=== PATIENT | female | born 1940 | race Caucasian/White ===

== ENCOUNTER 2017-01-16 13:08 | Observation (INO) | payer MEDICARE, OTHER ==
[2017-01-16 13:09] VITALS: BMI 33.2
[2017-01-16 15:05] LABS: VENOUS BLOOD GAS BASE EXCESS 3.4 mmol/L (0.0-2.0); VENOUS BLOOD GAS PCO2 44 mmHg (40-60); VENOUS BLOOD PH 7.42 (7.32-7.43)
[2017-01-16 15:05] LABS: BASO % 0.4 % (0.0-2.0); EOS # 0.1 K/uL (0.0-0.7); EOS % 1.9 % (0.0-4.0); HEMATOCRIT 31.2 % (34.0-47.0); LYMPH # 1.9 K/uL (1.0-4.3); LYMPH % 27.7 % (20.0-40.0); MEAN CELL VOLUME 91.7 fL (81.0-99.0); MEAN CORPUSCULAR HEMOGLOBIN 30.4 pg (27.0-31.0); MEAN CORPUSCULAR HGB CONC 33.2 g/dL (33.0-37.0); MEAN PLATELET VOLUME 8.2 fL (7.2-11.7); MONO # 0.4 K/uL (0.0-0.8); MONO % 5.3 % (0.0-10.0); RED CELL DISTRIBUTION WIDTH 16.9 % (11.5-14.5)
[2017-01-16 15:15] LABS: INR 1.1; PARTIAL THROMBOPLASTIN TIME 28 SECONDS (21-34)
[2017-01-16 15:25] LABS: RBC URINE 2 /hpf (0-3); URINE BACTERIA RARE (<OCC); URINE BILIRUBIN NEGATIVE (NEGATIVE); URINE BLOOD NEGATIVE (NEGATIVE); URINE COLOR Yellow (YELLOW); URINE GLUCOSE (UA) 3+ mg/dL (Normal); URINE KETONE NEGATIVE (NEGATIVE); URINE LEUKOCYTE ESTERASE 2+ Leu/uL (Negative); URINE PROTEIN 2+ mg/dL (NEGATIVE); URINE UROBILINOGEN NORMAL mg/dL (0.2-1.0); WBC URINE 4 /hpf (0-5)
[2017-01-16 15:33] LABS: POTASSIUM 4.3 mmol/L (3.6-5.2)
[2017-01-16 15:35] LABS: ALB/GLOB RATIO 1.4 (1.0-2.1); BILIRUBIN,TOTAL 0.8 mg/dL (0.2-1.3); TOTAL PROTEIN 7.2 g/dL (6.3-8.3)
[2017-01-16 15:36] LABS: CALCIUM 9.5 mg/dl (8.6-10.4)
--- NOTE | 2017-01-16 15:37 | RAD ---
PROCEDURE: CHEST RADIOGRAPH, 1 VIEW HISTORY: weakness COMPARISON: 12/07/2015 FINDINGS: LUNGS: Clear. PLEURA: No pneumothorax or pleural fluid seen. CARDIOVASCULAR: Normal. OSSEOUS STRUCTURES: No significant abnormalities. VISUALIZED UPPER ABDOMEN: Normal. OTHER FINDINGS: None. IMPRESSION: No active disease.
[2017-01-16 15:55] LABS: TROPONIN I 0.018 ng/mL (0.00-0.120)
[2017-01-16] MEDS ORDERED: cefTRIAXone IV 1 gm in Dextros 50 ML IVPB STA (16:10)
[2017-01-16] MEDS ORDERED: Azithromycin 500 MG in Sodium Chloride 0.9% 250 ML IVPB STA (16:10)
--- NOTE | 2017-01-16 16:46 | C.PDOC ---
History Of Present Illness Patient is a 76 y/o female, with PMHx of chronic kidney disease on hemodialysis , that presents to the ED for evaluation of not feeling well for the last 6 days. Pt was seen at [facility] after her dialysis on 01/13 with similar complaints, and had negative work up, and was discharged home. Pt states that she skipped her dialysis yesterday because she was not feeling good. Pt notes nausea, and lightheadedness. Otherwise, denies any chest pain, shortness of breath, vomiting, diarrhea, abdominal pain, fever, chills, or any other associated symptoms at this time. Time Seen by Provider: 01/16/17 14:28 Chief Complaint (Nursing): Weakness/Neurological Deficit History Per: Patient History/Exam Limitations: no limitations Onset/Duration Of Symptoms: Days (6) Current Symptoms Are (Timing): Still Present Severity: None Pain Scale Rating Of: 0 Recent travel outside of the [place]: No Additional History Per: Patient Past Medical History Reviewed: Historical Data, Nursing Documentation, Vital Signs Vital Signs: Last Vital Signs Temp 100 F H 01/16/17 15:13 Pulse 62 01/16/17 18:41 Resp 20 01/16/17 18:41 BP 147/61 01/16/17 18:41 Pulse Ox 97 01/16/17 19:01 - Medical History PMH: Anemia, Anxiety, Arthritis, Asthma, Back Problems, Bronchitis, CHF, COPD, Dementia, Depression, Diabetes, HTN, Hypercholesterolemia, Peripheral Edema, Pneumonia, Chronic Kidney Disease - [facility] Procedures APPLICATION OF SPLINT (02/11/14) ENDOSC POLYPECTOMY OF LG INTEST (02/27/13) ESOPHAGOGASTRODUODENOSCOPY [EGD] W/CLOSED BIOPSY (02/27/13) INSERTION OF INFUSION DEV INTO INF VENA CAVA, PERC APPROACH (12/04/15) PACKED CELL TRANSFUSION (02/27/13) PERFORMANCE OF URINARY FILTRATION, MULTIPLE (12/04/15) TRANSFUSE NONAUT RED BLOOD CELLS IN PERIPH VEIN, PERC (12/04/15) Family History: States: Unknown Family Hx - Social History Hx Tobacco Use: No Hx Alcohol Use: No Hx Substance Use: No - Immunization History Hx Tetanus Toxoid Vaccination: No Hx Influenza Vaccination: Yes Hx Pneumococcal Vaccination: No Review Of Systems Except As Marked, All Systems Reviewed And Found Negative. Constitutional: Negative for: Fever, Chills Cardiovascular: Positive for: Light Headedness. Negative for: Chest Pain, Palpitations Respiratory: Negative for: Cough, Shortness of Breath Gastrointestinal: Positive for: Nausea. Negative for: Vomiting, Abdominal Pain , Diarrhea Musculoskeletal: Negative for: Back Pain Neurological: Negative for: Headache, Dizziness Physical Exam - Physical Exam Appears: No Acute Distress Skin: Normal Color, Warm, Dry Head: Atraumatic, Normacephalic Eye(s): bilateral: Normal Inspection Neck: Normal ROM, Supple Chest: Symmetrical Cardiovascular: Rhythm Regular, No Murmur Respiratory: Normal Breath Sounds, No Rales, No Rhonchi, No Wheezing Gastrointestinal/Abdominal: Soft, No Tenderness Back: Normal Inspection Neurological/Psych: Oriented x3, Normal Speech, Normal Cognition ED Course And Treatment - Laboratory Results Result Diagrams: 01/16/17 15:01 01/16/17 15:01 ECG: Interpreted By Me, Viewed By Me ECG Rhythm: Sinus Rhythm ECG Interpretation: No Acute Changes Interpretation Of ECG: Non-specific ST wave changes. Rate From EC (bpm) O2 Sat by Pulse Oximetry: 97 (on RA) Progress Note: Labs,EKG, CXR ordered and reviewed. Rectal temp was found to be 100. Normal Lactate levels. Pt was given Zithromax, Zofran, and Rocephin. Spoke with Dr. Lai who accepts pt under his service for observation. Disposition - Disposition Disposition: HOSPITALIZED Disposition Time: 16:46 Condition: FAIR - Clinical Impression Clinical Impression: Weakness, Nausea and vomiting, ESRD (end stage renal disease) on dialysis - PA / SHIP BOSS / Resident Statement MD/DO has reviewed & agrees with the documentation as recorded. - Scribe Statement The provider has reviewed the documentation as recorded by the Scribe Mathieu Calderon All medical record entries made by the Keronibluis were at my direction and personally dictated by me. I have reviewed the chart and agree that the record accurately reflects my personal performance of the history, physical exam, medical decision making, and the department course for this patient. I have also personally directed, reviewed, and agree with the discharge instructions and disposition. Decision To Admit - Pt Status Changed To: Hospital Disposition Of: Observation - . Bed Request Type: Regular Admitting Physician: Festus Lai Patient Diagnosis: Weakness, Nausea and vomiting, ESRD (end stage renal disease) on dialysis
[2017-01-16 18:42] VITALS: RESP 20
[2017-01-16] MEDS: (Novolog) Insulin Aspart, Recombinant 100 u/ml 10 ml vial SC SCH (22:00)
[2017-01-16] MEDS: (Lantus) Insulin Glargine, Recombinant SC SCH (22:17)
[2017-01-17] MEDS: (Novolog) Insulin Aspart, Recombinant 100 u/ml 10 ml vial SC SCH ×4 (07:31→21:23)
[2017-01-17] MEDS: Brimonidine 0.2% Opth Sol (5ml) OU SCH ×2 (09:00→21:19)
[2017-01-17] MEDS ORDERED: Pantoprazole 40 mg EC Tab PO SCH ×2 (10:00)
--- NOTE | 2017-01-17 11:21 | CP.PCM.CON ---
History of Present Illness - History of Present Illness History of Present Illness: Patient is a 76 y/o female, with PMHx of chronic kidney disease on hemodialysis , that presents to the ED for evaluation of not feeling well for the last 6 days. Pt was seen at [facility] after her dialysis on 01/13 with similar complaints, and had negative work up, and was discharged home. Pt states that she skipped her dialysis yesterday because she was not feeling good. Pt notes nausea, and lightheadedness. Otherwise, denies any chest pain, shortness of breath, vomiting, diarrhea, abdominal pain, fever, chills, or any other associated symptoms at this time. Since admission, patient feels much better. No further abdominal pain. no further nausea and in fact wants to eat Review of Systems - Constitutional Constitutional: absent: Anorexia, Chills, Fever - EENT Eyes: absent: Change in Vision, Dry Eye, Loss of Peripheral Vision Nose/Mouth/Throat: absent: Nasal Congestion, Bleeding Gums, Dry Mouth, Mouth Lesions - Cardiovascular Cardiovascular: absent: Dyspnea on Exertion, Lightheadedness, Paroxysmal Nocturnal Dyspnea - Respiratory Respiratory: absent: Cough, Dyspnea, Wheezing - Gastrointestinal Gastrointestinal: Abdominal Pain, Nausea. absent: Diarrhea - Musculoskeletal Musculoskeletal: Limited Range of Motion. absent: Arthralgias, Joint Swelling, Muscle Cramps - Integumentary Integumentary: absent: Rash, Skin Ulcer, Sores, Jaundice - Neurological Neurological: Dizziness. absent: Abnormal Hearing, Numbness, Syncope - Psychiatric Psychiatric: Memory Loss. absent: Confusion Past Patient History - Infectious Disease Hx of Infectious Diseases: None - Past Medical History & Family History Past Medical History?: Yes - Past Social History Smoking Status: Never Smoked - CARDIAC Hx Congestive Heart Failure: Yes Hx Hypercholesterolemia: Yes Hx Hypertension: Yes Hx Peripheral Edema: Yes - PULMONARY Hx Asthma: Yes Hx Bronchitis: Yes Hx Chronic Obstructive Pulmonary Disease (COPD): Yes Hx Pneumonia: Yes - NEUROLOGICAL Hx Dementia: Yes - HEENT Hx HEENT Problems: Yes Hx Glaucoma: Yes - RENAL Date of Last Dialysis Treatment: 01/13/17 - ENDOCRINE/METABOLIC Hx Endocrine Disorders: Yes Hx Diabetes Mellitus Type 2: Yes - HEMATOLOGICAL/ONCOLOGICAL Hx Blood Disorders: Yes Hx Anemia: Yes - INTEGUMENTARY Hx Dermatological Problems: Yes (h/o RIGHT foot lesion resection) - MUSCULOSKELETAL/RHEUMATOLOGICAL Hx Musculoskeletal Disorders: Yes Hx Falls: Yes Hx Unsteady Gait: Yes - GASTROINTESTINAL Hx Gastrointestinal Disorders: Yes Hx Gastroesophageal Reflux: Yes Hx Nausea: Yes Hx Ulcer: Yes - GENITOURINARY/GYNECOLOGICAL Hx Genitourinary Disorders: Yes Hx Incontinence: Yes - PSYCHIATRIC Hx Psychophysiologic Disorder: No Hx Substance Use: No - SURGICAL HISTORY Hx Surgeries: Yes Hx Hysterectomy: Yes Other/Comment: BLADDER SX, RIGHT FOOT SURGERY-RESECTION DUE TO CANCER. - ANESTHESIA Hx Anesthesia: Yes Hx Anesthesia Reactions: No Hx Malignant Hyperthermia: No Has any member of the family had a problem w/ anesthesia?: No Meds Allergies/Adverse Reactions: Allergies Allergy/AdvReac Type Severity Reaction Status Date / Time No Known Allergies Allergy Verified 01/16/17 13:23 - Medications Medications: Current Medications Amlodipine Besylate (Norvasc) 5 mg PO DAILY [facility] Last Admin: 01/17/17 09:01 Dose: Not Given Brimonidine Tartrate (Alphagan 0.2% Opht) 0 ml OU BID [facility] Last Admin: 01/17/17 09:00 Dose: Not Given Calcitriol (Rocaltrol) 0.25 mcg PO DAILY [facility] Last Admin: 01/17/17 09:02 Dose: Not Given Donepezil HCl (Aricept) 10 mg PO HS [facility] Last Admin: 01/16/17 21:33 Dose: 10 mg Escitalopram Oxalate (Lexapro) 20 mg PO DAILY [facility] Last Admin: 01/17/17 09:01 Dose: Not Given Ferrous Sulfate (Feosol) 325 mg PO DAILY [facility] Last Admin: 01/17/17 09:01 Dose: Not Given Gabapentin (Neurontin) 300 mg PO HS [facility] Last Admin: 01/16/17 21:33 Dose: 300 mg Heparin Sodium (Porcine) (Heparin) 5,000 units SC Q8 [facility] Last Admin: 01/17/17 05:55 Dose: 5,000 units Hydralazine HCl (Apresoline) 50 mg PO TID [facility] Last Admin: 01/17/17 09:01 Dose: Not Given Ceftriaxone Sodium 1 gm/ (Sodium Chloride) 100 mls @ 100 mls/hr IVPB DAILY [facility] Last Admin: 01/17/17 10:00 Dose: 100 mls/hr Insulin Aspart (Novolog) 0 unit SC ACHS [facility] PRN Reason: Protocol Last Admin: 01/17/17 07:31 Dose: Not Given Insulin Glargine (Lantus) 30 unit SC [facility] Last Admin: 01/16/17 22:17 Dose: 30 units Ondansetron HCl (Zofran Inj) 4 mg IVP Q4 PRN PRN Reason: Nausea/Vomiting Pantoprazole Sodium (Protonix Inj) 40 mg IVP DAILY [facility] Last Admin: 01/17/17 09:02 Dose: Not Given Pantoprazole Sodium (Protonix Ec Tab) 40 mg PO DAILY [facility] Rosuvastatin Calcium (Crestor) 5 mg PO HS [facility] Last Admin: 01/16/17 21:33 Dose: 5 mg Trazodone HCl (Desyrel) 50 mg PO HS PRN PRN Reason: Sleep Physical Exam - Constitutional Appears: Non-toxic, Chronically Ill - Head Exam Head Exam: ATRAUMATIC, NORMAL INSPECTION - Eye Exam Eye Exam: EOMI, Normal appearance - ENT Exam ENT Exam: Mucous Membranes Moist, Normal Oropharynx - Neck Exam Neck exam: Negative for: Lymphadenopathy, Thyromegaly - Respiratory Exam Respiratory Exam: Clear to Auscultation Bilateral. absent: Rhonchi, Wheezes - Cardiovascular Exam Cardiovascular Exam: REGULAR RHYTHM, +S1, +S2. absent: JVD - GI/Abdominal Exam GI & Abdominal Exam: Normal Bowel Sounds, Soft - Extremities Exam Extremities exam: Positive for: pedal edema. Negative for: joint swelling - Neurological Exam Neurological exam: Alert, Oriented x3 - Psychiatric Exam Psychiatric exam: Normal Affect, Normal Mood - Skin Skin Exam: Dry, Intact Results - Vital Signs Recent Vital Signs: Last Vital Signs Temp 99.2 F 01/17/17 08:00 Pulse 59 L 01/17/17 08:00 Resp 20 01/17/17 08:00 BP 148/64 01/17/17 08:00 Pulse Ox 95 01/17/17 08:00 - Labs Result Diagrams: 01/16/17 15:01 01/16/17 15:01 Labs: Laboratory Results - last 24 hr 01/16/17 01/16/17 01/17/17 18:49 21:24 07:10 POC Glucose (mg/dL) 136 H 124 H 97 Assessment & Plan (1) ESRD (end stage renal disease) on dialysis Status: Acute (2) Nausea and vomiting Status: Acute (3) Controlled diabetes mellitus with diabetic nephropathy Status: Acute (4) ESRD (end stage renal disease) Status: Chronic (5) Hypertension Status: Chronic (6) Anemia Status: Acute - Assessment and Plan (Free Text) Assessment: Abdominal discomfort of uncertain etiology - resolving ? viral gastroenteritis Schedule dialysis today for azotemia and electrolyte abnormalities Continue home bp meds Check phos Monitor hgb ?GI eval
--- NOTE | 2017-01-17 18:21 | CP.PCM.PN ---
Subjective - Date & Time of Evaluation Date of Evaluation: 01/17/17 Time of Evaluation: 20:00 - Subjective Subjective: pt seen and evaluated, Abdominal discomfort of uncertain etiology - resolving could be viral gastroenteritis, Schedule dialysis today for azotemia and electrolyte abnormalities Continue home bp meds Check phos Monitor hgb pt is for GI eval Objective - Vital Signs/Intake and Output Vital Signs (last 24 hours): Temp Pulse Resp BP Pulse Ox 97.5 F L 60 20 161/87 H 98 01/17/17 16:30 01/17/17 16:58 01/17/17 16:58 01/17/17 16:58 01/17/17 16:30 Intake and Output: 01/17/17 01/17/17 06:59 18:59 Intake Total 500 450 Balance 500 450 - Medications Medications: Current Medications Amlodipine Besylate (Norvasc) 5 mg PO DAILY [facility] Last Admin: 01/17/17 09:01 Dose: Not Given Brimonidine Tartrate (Alphagan 0.2% Opht) 0 ml OU BID [facility] Last Admin: 01/17/17 09:00 Dose: Not Given Calcitriol (Rocaltrol) 0.25 mcg PO DAILY [facility] Last Admin: 01/17/17 09:02 Dose: Not Given Donepezil HCl (Aricept) 10 mg PO HS [facility] Last Admin: 01/16/17 21:33 Dose: 10 mg Escitalopram Oxalate (Lexapro) 20 mg PO DAILY [facility] Last Admin: 01/17/17 09:01 Dose: Not Given Ferrous Sulfate (Feosol) 325 mg PO DAILY [facility] Last Admin: 01/17/17 09:01 Dose: Not Given Gabapentin (Neurontin) 300 mg PO HS [facility] Last Admin: 01/16/17 21:33 Dose: 300 mg Heparin Sodium (Porcine) (Heparin) 5,000 units SC Q8 [facility] Last Admin: 01/17/17 13:21 Dose: Not Given Hydralazine HCl (Apresoline) 50 mg PO TID [facility] Last Admin: 01/17/17 17:50 Dose: 50 mg Ceftriaxone Sodium 1 gm/ (Sodium Chloride) 100 mls @ 100 mls/hr IVPB DAILY [facility] Last Admin: 01/17/17 10:00 Dose: 100 mls/hr Insulin Aspart (Novolog) 0 unit SC ACHS [facility] PRN Reason: Protocol Last Admin: 01/17/17 12:20 Dose: Not Given Insulin Glargine (Lantus) 30 unit SC HS [facility] Last Admin: 01/16/17 22:17 Dose: 30 units Ondansetron HCl (Zofran Inj) 4 mg IVP Q4 PRN PRN Reason: Nausea/Vomiting Pantoprazole Sodium (Protonix Inj) 40 mg IVP DAILY [facility] Last Admin: 01/17/17 09:02 Dose: Not Given Rosuvastatin Calcium (Crestor) 5 mg PO HS [facility] Last Admin: 01/16/17 21:33 Dose: 5 mg Trazodone HCl (Desyrel) 50 mg PO HS PRN PRN Reason: Sleep - Labs Labs: PT 12.0 SECONDS (9.7-12.2) 01/16/17 15:01 INR 1.1 01/16/17 15:01 APTT 28 SECONDS (21-34) 01/16/17 15:01 - Constitutional Appears: No Acute Distress, Other (looks weak, pale) - Head Exam Head Exam: ATRAUMATIC, NORMAL INSPECTION, NORMOCEPHALIC - Eye Exam Eye Exam: EOMI - ENT Exam ENT Exam: Mucous Membranes Moist, Normal Exam - Respiratory Exam Respiratory Exam: Clear to Ausculation Bilateral, NORMAL BREATHING PATTERN - Cardiovascular Exam Cardiovascular Exam: REGULAR RHYTHM, +S1, +S2 - GI/Abdominal Exam GI & Abdominal Exam: Soft, Normal Bowel Sounds. absent: Tenderness Assessment and Plan (1) Abdominal pain Status: Acute (2) Anemia Status: Acute (3) Controlled diabetes mellitus with diabetic nephropathy Status: Acute (4) ESRD (end stage renal disease) on dialysis Status: Acute (5) Nausea and vomiting Status: Acute (6) Hypertension Status: Chronic
--- NOTE | 2017-01-17 18:21 | CP.PCM.HP ---
History of Present Illness - History of Present Illness History of Present Illness: CC: nausea/Vomitting , fever x 1week HPI: Patient is a 76 y/o elderly female, with PMHx of type 2 DM, depression, chronic kidney disease on hemodialysis, ambulating with walker and cane , dependent on family members for ADL , she went to [facility] in ER first then left there and presents to the ED here for evaluation of not feeling well for the last 6 days. Pt was seen at [facility] after her dialysis on 01/13 with similar complaints, and had negative work up, and was discharged home. Pt states that she skipped her dialysis yesterday because she was not feeling good. Pt notes nausea, and lightheadedness. Otherwise, denies any chest pain, shortness of breath, vomiting, diarrhea, abdominal pain, fever, chills, or any other associated symptoms at this time. Present on Admission - Present on Admission Any Indicators Present on Admission: Yes History of DVT/PE: No History of Uncontrolled Diabetes: Yes Urinary Catheter: No (ESRD) Review of Systems - Review of Systems Systems not reviewed;Unavailable: Acuity of Condition - Constitutional Constitutional: Fatigue, Lethargy, Malaise - EENT Eyes: absent: As Per HPI, Blind Spots, Blurred Vision, Change in Vision, Decreased Night Vision, Diplopia, Discharge, Dry Eye, Exophthalmos, Floaters, Irritation, Itchy Eyes, Loss of Peripheral Vision, Pain, Photophobia, Requires Corrective Lenses, Sees Flashes, Spots in Vision, Tunnel Vision, Other Visual Disturbances, Loss of Vision, Other Ears: absent: As Per HPI, Decreased Hearing, Ear Discharge, Ear Pain, Tinnitus, Abnormal Hearing, Disequilibrium, Dizziness, Other Nose/Mouth/Throat: absent: As Per HPI, Epistaxis, Nasal Congestion, Nasal Discharge, Nasal Obstruction, Nasal Trauma, Nose Pain, Post Nasal Drip, Sinus Pain, Sinus Pressure, Bleeding Gums, Change in Voice, Dental Pain, Dry Mouth, Dysphagia, Halitosis, Hoarsness, Lip Swelling, Mouth Lesions, Mouth Pain, Odynophagia, Sore Throat, Throat Swelling, Tongue Swelling, Facial Pain, Neck Pain, Neck Mass, Other - Cardiovascular Cardiovascular: absent: As Per HPI, Acrocyanosis, Chest Pain, Chest Pain at Rest , Chest Pain with Activity, Claudication, Diaphoresis, Dyspnea, Dyspnea on Exertion, Edema, Irregular Heart Rhythm, Pain Radiating to Arm/Neck/Jaw, Leg Edema, Leg Ulcers, Lightheadedness, Orthopnea, Palpitations, Paroxysmal Nocturnal Dyspnea, Pedal Edema, Radiating Pain, Rapid Heart Rate, Slow Heart Rate, Syncope, Other - Gastrointestinal Gastrointestinal: Abdominal Pain, Diarrhea, Loose Stools, Nausea, Vomiting - Genitourinary Genitourinary: absent: As Per HPI, Change in Urinary Stream, Difficulty Urinating, Dysuria, Flank Pain, Hematuria, Pyuria, Nocturia, Urinary Incontinence, Urinary Frequency, Urinary Hesitance, Urinary Urgency, Voiding Freq/Small Amts, Freq UTI, Hx Renal/Bladder Calculi, Hx /Renal Surgery, Bladder Distension, Other - Neurological Neurological: Dizziness - Psychiatric Psychiatric: absent: As Per HPI, Abnormal Sleep Pattern, Anhedonia, Anxiety, Auditory Hallucinations, Behavioral Changes, Change in Appetite, Change in Libido, Confusion, Depression, Difficulty Concentrating, Hallucinations, Homicidal Ideation, Hopelessness, Irritability, Memory Loss, Mood Swings, Panic Attacks, Paranoia, Suicidal Ideation, Visual Hallucinations, Tactile Hallucinations, Other Past Patient History - Infectious Disease Hx of Infectious Diseases: None - Past Medical History & Family History Past Medical History?: Yes - Past Social History Smoking Status: Never Smoked - CARDIAC Hx Congestive Heart Failure: Yes Hx Hypercholesterolemia: Yes Hx Hypertension: Yes - PULMONARY Hx Chronic Obstructive Pulmonary Disease (COPD): Yes - NEUROLOGICAL Hx Dementia: Yes - HEENT Hx HEENT Problems: Yes Hx Glaucoma: Yes - RENAL Hx Renal Failure: Yes (CKD, ESRD, HD,) - ENDOCRINE/METABOLIC Hx Diabetes Mellitus Type 2: Yes - HEMATOLOGICAL/ONCOLOGICAL Hx Blood Disorders: Yes Hx Anemia: Yes - INTEGUMENTARY Hx Dermatological Problems: Yes (h/o RIGHT foot lesion resection) - MUSCULOSKELETAL/RHEUMATOLOGICAL Hx Musculoskeletal Disorders: Yes Hx Falls: Yes Hx Unsteady Gait: Yes - GASTROINTESTINAL Hx Gastrointestinal Disorders: Yes Hx Gastroesophageal Reflux: Yes Hx Nausea: Yes Hx Ulcer: Yes - GENITOURINARY/GYNECOLOGICAL Hx Genitourinary Disorders: Yes Hx Incontinence: Yes - PSYCHIATRIC Hx Psychophysiologic Disorder: No Hx Substance Use: No - SURGICAL HISTORY Hx Surgeries: Yes Hx Hysterectomy: Yes Other/Comment: BLADDER SX, RIGHT FOOT SURGERY-RESECTION DUE TO CANCER. - ANESTHESIA Hx Anesthesia: Yes Hx Anesthesia Reactions: No Hx Malignant Hyperthermia: No Has any member of the family had a problem w/ anesthesia?: No Meds Allergies/Adverse Reactions: Allergies Allergy/AdvReac Type Severity Reaction Status Date / Time No Known Allergies Allergy Verified 01/16/17 13:23 Physical Exam - Constitutional Appears: No Acute Distress - Head Exam Head Exam: ATRAUMATIC, NORMAL INSPECTION, NORMOCEPHALIC - Eye Exam Eye Exam: EOMI, Normal appearance, PERRL Pupil Exam: NORMAL ACCOMODATION, PERRL - ENT Exam ENT Exam: Mucous Membranes Moist, Normal Exam - Neck Exam Neck exam: Positive for: Normal Inspection - Respiratory Exam Respiratory Exam: Clear to Auscultation Bilateral, NORMAL BREATHING PATTERN - Cardiovascular Exam Cardiovascular Exam: REGULAR RHYTHM, +S1, +S2 - GI/Abdominal Exam GI & Abdominal Exam: Hyperactive Bowel Sounds, Soft - Rectal Exam Rectal Exam: NORMAL INSPECTION Results - Vital Signs Recent Vital Signs: Last Vital Signs Temp 97.5 F L 01/17/17 16:30 Pulse 60 01/17/17 16:58 Resp 20 01/17/17 16:58 BP 161/87 H 01/17/17 16:58 Pulse Ox 98 01/17/17 16:30 - Labs Result Diagrams: 01/16/17 15:01 01/16/17 15:01 Labs: Laboratory Results - last 24 hr 01/16/17 01/16/17 01/17/17 18:49 21:24 07:10 POC Glucose (mg/dL) 136 H 124 H 97 01/17/17 01/17/17 12:05 16:17 POC Glucose (mg/dL) 173 H 115 H Assessment & Plan (1) Abdominal pain Assessment and Plan: could be gastroenteritis Status: Acute (2) Fever Assessment and Plan: rule out septicemia in a pt with Iv access Status: Acute (3) Diabetes Status: Chronic (4) ESRD (end stage renal disease) Status: Chronic (5) Hypertension Status: Chronic
[2017-01-17] MEDS: (Lantus) Insulin Glargine, Recombinant SC SCH (21:22)
[2017-01-18] MEDS: (Novolog) Insulin Aspart, Recombinant 100 u/ml 10 ml vial SC SCH ×2 (07:30→12:54)
[2017-01-18 08:34] VITALS: TEMP 97.9
[2017-01-18] MEDS: Brimonidine 0.2% Opth Sol (5ml) OU SCH (09:36)
[2017-01-18 14:07] VITALS: BP 144/58; O2SAT 60
[2017-01-18 15:19] VITALS: PULSE 62
--- NOTE | 2017-01-18 23:09 | CP.PCM.DIS ---
Provider - Provider Date of Admission: 01/16/17 16:44 Attending physician: Festus Lai MD Time Spent in preparation of Discharge (in minutes): 24 Hospital Course - Lab Results Lab Results: Micro Results 01/16/17 Unknown Urine Urine Culture - Final No Growth (<1,000 CFU/ML) Most Recent Lab Values WBC 7.0 K/uL (4.8-10.8) 01/16/17 15:01 RBC 3.41 Mil/uL (3.80-5.20) L 01/16/17 15:01 Hgb 10.4 g/dL (11.0-16.0) L 01/16/17 15:01 Hct 31.2 % (34.0-47.0) L 01/16/17 15:01 MCV 91.7 fL (81.0-99.0) D 01/16/17 15:01 MCH 30.4 pg (27.0-31.0) 01/16/17 15:01 MCHC 33.2 g/dL (33.0-37.0) 01/16/17 15:01 RDW 16.9 % (11.5-14.5) H 01/16/17 15:01 Plt Count 175 K/uL (130-400) 01/16/17 15:01 MPV 8.2 fL (7.2-11.7) 01/16/17 15:01 Neut % (Auto) 64.7 % (50.0-75.0) 01/16/17 15:01 Lymph % (Auto) 27.7 % (20.0-40.0) 01/16/17 15:01 [place] % (Auto) 5.3 % (0.0-10.0) 01/16/17 15:01 Eos % (Auto) 1.9 % (0.0-4.0) 01/16/17 15:01 Baso % (Auto) 0.4 % (0.0-2.0) 01/16/17 15:01 Neut # 4.5 K/uL (1.8-7.0) 01/16/17 15:01 Lymph # 1.9 K/uL (1.0-4.3) 01/16/17 15:01 [place] # 0.4 K/uL (0.0-0.8) 01/16/17 15:01 Eos # 0.1 K/uL (0.0-0.7) 01/16/17 15:01 Baso # 0.0 K/uL (0.0-0.2) 01/16/17 15:01 PT 12.0 SECONDS (9.7-12.2) 01/16/17 15: INR 1.1 01/16/17 15:01 APTT 28 SECONDS (21-34) 01/16/17 15:01 D-Dimer, Quantitative < 200 ng/mlDDU (0-243) 01/16/17 15:01 pO2 32 mm/Hg (30-55) 01/16/17 15:00 VBG pH 7.42 (7.32-7.43) 01/16/17 15:00 VBG pCO2 44 mmHg (40-60) 01/16/17 15:00 VBG HCO3 26.6 mmol/L 01/16/17 15:00 VBG Total CO2 29.9 mmol/L (22-28) H 01/16/17 15:00 VBG O2 Sat (Calc) 67.7 % (40-65) H 01/16/17 15:00 VBG Base Excess 3.4 mmol/L (0.0-2.0) H 01/16/17 15:00 VBG Potassium 3.8 mmol/L (3.6-5.2) 01/16/17 15:00 Sodium 138.0 mmol/l (132-148) 01/16/17 15:00 Chloride 105.0 mmol/L (98-107) 01/16/17 15:00 Glucose 190 mg/dl (65-105) H 01/16/17 15:00 Lactate 1.0 mmol/L (0.7-2.1) 01/16/17 15:00 Sodium 138 mmol/L (132-148) 01/16/17 15:01 Potassium 4.3 mmol/L (3.6-5.2) 01/16/17 15:01 Chloride 100 mmol/L (98-107) 01/16/17 15:01 Carbon Dioxide 25 mmol/L (22-30) 01/16/17 15:01 Anion Gap 17 (10-20) 01/16/17 15:01 BUN 43 mg/dL (7-17) H 01/16/17 15:01 Creatinine 4.7 MG/DL (0.7-1.2) H 01/16/17 15:01 Est GFR ( Amer) 11 01/16/17 15:01 Est GFR (Non-Af Amer) 9 01/16/17 15:01 POC Glucose (mg/dL) 237 mg/dL (65-110) H 01/18/17 11:21 Random Glucose 187 mg/dL (65-105) H 01/16/17 15:01 Calcium 9.5 mg/dl (8.6-10.4) 01/16/17 15:01 Total Bilirubin 0.8 mg/dL (0.2-1.3) 01/16/17 15:01 AST 21 U/L (14-36) 01/16/17 15:01 ALT 10 U/L (9-52) 01/16/17 15:01 Alkaline Phosphatase 81 U/L (38-126) 01/16/17 15:01 Total Creatine Kinase 62 U/L (30-135) 01/16/17 15:01 CK-MB (Mass) 0.39 ng/mL (0.0-3.38) 01/16/17 15:01 Troponin I 0.0180 ng/mL (0.00-0.120) 01/16/17 15:01 NT-Pro-B Natriuret Pep 2240 pg/mL (0-900) H 01/16/17 15:01 Total Protein 7.2 g/dL (6.3-8.3) 01/16/17 15:01 Albumin 4.2 g/dL (3.5-5.0) 01/16/17 15:01 Globulin 3.1 gm/dL (2.2-3.9) 01/16/17 15:01 Albumin/Globulin Ratio 1.4 (1.0-2.1) 01/16/17 15:01 Amylase 114 U/L (30-110) H 01/16/17 15:01 Lipase 110 U/L (23-300) 01/16/17 15:01 Venous Blood Potassium 3.8 mmol/L (3.6-5.2) 01/16/17 15:00 Urine Color Yellow (YELLOW) 01/16/17 15:09 Urine Clarity Hazy (Clear) 01/16/17 15:09 Urine pH 7.0 (5.0-8.0) 01/16/17 15:09 Ur Specific Mark Center 1.010 (1.003-1.030) 01/16/17 15:09 Urine Protein 2+ mg/dL (NEGATIVE) H 01/16/17 15:09 Urine Glucose (UA) 3+ mg/dL (Normal) H 01/16/17 15:09 Urine Ketones Negative mg/dL (NEGATIVE) 01/16/17 15:09 Urine Blood Negative (NEGATIVE) 01/16/17 15:09 Urine Nitrate Negative (NEGATIVE) 01/16/17 15:09 Urine Bilirubin Negative (NEGATIVE) 01/16/17 15:09 Urine Urobilinogen Normal mg/dL (0.2-1.0) 01/16/17 15:09 Ur Leukocyte Esterase 2+ Jesus/uL (Negative) H 01/16/17 15:09 Urine WBC (Auto) 4 /hpf (0-5) 01/16/17 15:09 Urine RBC (Auto) 2 /hpf (0-3) 01/16/17 15:09 Ur Squamous Epith Cells 5 /hpf (0-5) 01/16/17 15:09 Urine Bacteria Rare (<OCC) 01/16/17 15:09 - Hospital Course Hospital Course: pt seen and evaluated, Abdominal discomfort of uncertain etiology - resolving s/p dialysis yesterday for azotemia and electrolyte abnormalities Continue home bp meds labs reviwed , pt is stable for discharge, complaince with Hd and follow up encouraged Discharge Exam - Head Exam Head Exam: ATRAUMATIC, NORMAL INSPECTION - Eye Exam Eye Exam: EOMI, Normal appearance, PERRL Pupil Exam: NORMAL ACCOMODATION, PERRL - ENT Exam ENT Exam: Mucous Membranes Moist - Respiratory Exam Respiratory Exam: Clear to PA & Lateral, NORMAL BREATHING PATTERN - Cardiovascular Exam Cardiovascular Exam: REGULAR RHYTHM, +S1, +S2 - GI/Abdominal Exam GI & Abdominal Exam: Normal Bowel Sounds - Neurological Exam Neurological exam: Alert, CN II-XII Intact, Normal Gait, Oriented x3, Reflexes Normal Discharge Plan - Follow Up Plan Condition: FAIR Disposition: HOME/ ROUTINE Instructions: Metoclopramide (By mouth), Dialysis Diet (DC), Weakness (ED), Anemia (DC), End Stage Kidney Disease (DC)
--- NOTE | 2017-01-19 14:28 | CARD ---
APPROVED REPORT EKG Measurement Heart [id number] [id number] <Conclusion> Normal sinus rhythm Nonspecific ST abnormality Abnormal ECG
== END 2017-01-18 15:47 | disposition home or self-care (01) ==
LOC: C.ER 13:08 → C.9E 16:44 → C.3T 18:55
PROVIDERS: ADMIT Internal Medicine; ATTEND Internal Medicine
DX: A08.4 Viral intestinal infection, unspecified (principal); J44.9 Chronic obstructive pulmonary disease, unspecified; D64.9 Anemia, unspecified; E11.21 Type 2 diabetes mellitus with diabetic nephropathy; E11.22 Type 2 diabetes mellitus with diabetic chronic kidney disease; E78.00 Pure hypercholesterolemia, unspecified; Z99.2 Dependence on renal dialysis; I13.2 Hypertensive heart and chronic kidney disease with heart failure and with stage 5 chronic kidney disease, or end stage renal disease; N18.6 End stage renal disease; I50.9 Heart failure, unspecified; Z68.36 Body mass index [BMI] 36.0-36.9, adult
CPT/HCPCS: 71010; 80053; 81001; 82150; 82550; 82553; 82803; 82948; 83690; 83880; 84484; 85025; 85378; 85610; 85730; 87040; 87086; 93005; 96365; 96366; 96375; 97116; 97163; 99285; C9113; G0257; G0378; G8978; G8979; J0696; J1644; J2405; J7050